=== PATIENT | female | born 1995 | race Caucasian/White ===

== ENCOUNTER → 2024-06-19 09:11 | Outpatient (REF) | payer OTHER, SELFPAY | LOC: WDC 09:11 | PROVIDERS: ATTENDING PHYSICIAN Obstetrics & Gynecology Gynecology; FAMILY PHYSICIAN Physician Assistant Medical | DX: N63.20 Unspecified lump in the left breast, unspecified quadrant (principal); N64.4 Mastodynia; N63.23 Unspecified lump in the left breast, lower outer quadrant | CPT/HCPCS: 76642 ==